=== PATIENT | female | born 1980 | race Caucasian/White ===

== ENCOUNTER 2018-06-10 03:59 | Emergency (ER) | payer OTHER ==
[2018-06-10 04:34] LABS: #Basophils 0.1 thou/uL (0.0-0.2); #Eosinphils 0.2 thou/uL (0.0-0.7); #Lymphocytes 2.3 thou/uL (1.20-3.40); #Neutrophils 11.3 thou/uL (1.40-6.50); %Basophils 0.6 % (0.0-1.0); %Eosinophils 1.4 % (0.0-10.0); %Lymphocytes 15.6 % (21.0-51.0); %Monocytes 6.8 % (0.0-10.0); %Neutrophils 75.7 % (42.0-75.0); Hemoglobin 9.4 g/dL (12.0-16.0); Mean Corpuscular HGB CONC 34.3 g/dL (32.0-36.0); Mean Corpuscular Hemoglobin 31.2 pg (27.0-31.0); Mean Corpuscular Volume 90.9 fL (78.0-98.0); Mean Platelet Volume 6.2 fL (7.4-10.4); Platelet Count 341 thou/uL (130-400); RBC Distribution Width 11.7 % (11.5-14.5); Red Blood Cell (RBC) Count 3.01 mill/uL (4.20-5.40)
[2018-06-10 04:54] LABS: ALT (SGPT) 11 U/L (8-55); AST (SGOT) 11 U/L (5-34); Albumin 3.5 g/dL (3.5-5.0); Alkaline Phosphatase 76 U/L (40-150); Anion Gap 14 mmol/L (10-20); BUN (Urea Nitrogen) 8 mg/dL (7.0-18.7); Bilirubin, Total Less than 0.2 mg/dL (0.2-1.2); CK (CPK) 168 U/L (29-168); Calc. Creatinine Clearance 0 mL/min (70-130); Calcium 9.1 mg/dL (7.8-10.44); Carbon Dioxide 23 mmol/L (22-29); Chloride 103 mmol/L (98-107); Estimated GFR-MDRD Greater than 90; Globulin 3.1 g/dL (2.4-3.5); Glucose 108 mg/dL (70-105); Potassium 3.5 mmol/L (3.5-5.1); Protein, Total 6.6 g/dL (6.0-8.3); Sodium 136 mmol/L (136-145)
[2018-06-10] MEDS ORDERED: Acetaminophen/Codeine 30-300mg Tablet ONE (05:28)
== END 2018-06-10 06:26 | disposition home or self-care (01) ==
LOC: ERS 03:59
DX: O09.522 Supervision of elderly multigravida, second trimester (principal); O99.89 Other specified diseases and conditions complicating pregnancy, childbirth and the puerperium; R07.9 Chest pain, unspecified; Z87.891 Personal history of nicotine dependence; Z3A.25 25 weeks gestation of pregnancy
CPT/HCPCS: 36415; 80053; 82550; 84484; 85025; 93005

== ENCOUNTER 2018-07-19 18:04 | Observation (INO) | payer OTHER ==
[2018-07-19 19:17] VITALS: BMI 43.8
[2018-07-19 19:47] LABS: Bilirubin Negative (Negative); Blood, Urine Negative (Negative); Clarity CLEAR (Clear); Glucose, Urine (Dipstick) Negative (Negative); Leukocyte Negative (Negative); Nitrite Negative (Negative); Protein, Urine (Dipstick) Negative (Neg-Trace); Specific Gravity, Urine 1.004 (1.002-1.036); Urobilinogen 0.2 mg/dL (0.2-1.0); pH, Urine 6.5 (5.0-9.0)
[2018-07-19 20:03] LABS: FFN Internal QC Analyzer PASS (PASS); FFN Internal QC Cassette PASS (PASS); Fetal Fibronectin Negative (Negative)
[2018-07-19] MEDS ORDERED: Butorphanol Tartrate 1 MG/ML VIAL SLOW IVP PRN (20:14)
[2018-07-19] MEDS ORDERED: Lactated Ringer's 1,000 ML IV SCH ×2 (20:15→21:30)
[2018-07-19] MEDS ORDERED: Ondansetron PF 4 MG/2 ML Vial IVP PRN (21:30)
[2018-07-19] MEDS ORDERED: Zolpidem Tartrate 5 MG TAB PO PRN (21:30)
[2018-07-19] MEDS ORDERED: Promethazine HCl 25 MG/ML VIAL IM PRN (21:30)
--- NOTE | 2018-07-19 22:39 | PDOC.EVN ---
Event Note - Event Note Event Note: Received call from L&D RN that pt. has signed out AMA apparently saying she was driving herself to [place] to be seen there. Dr. Hill was notified.
--- NOTE | 2018-07-20 01:53 | HP ---
REGULAR PHYSICIAN: Harley Hill DO, MS EVALUATING PHYSICIAN: Ankit Bergeron MD CHIEF COMPLAINT: Abdominal cramping. HISTORY OF PRESENT ILLNESS: Ms. Turcios is a 37-year-old white G2, P0, with an estimated date of confinement of 09/24/2018, who presents after complaining of abdominal cramping at her Maternal Medicine visit this afternoon. Her care has been with Dr. Julian. She has been complicated by anti C antibody status during her . The patient also has a pacemaker and at this point, her disposition is to deliver at [facility] in [place]. PAST OBSTETRICAL HISTORY: Includes one early miscarriage requiring D and C. PAST MEDICAL HISTORY: History includes sick sinus syndrome for which she has had both tachycardia and bradycardia. She has a pacemaker in place. She reports having had ablated procedures in the past. PAST SURGICAL HISTORY: Pacemaker placement, cardiac ablation, and sinus node surgery to her heart. CURRENT MEDICATIONS: vitamins and Macrobid. ALLERGIES: PENICILLIN, AMOXICILLIN, BACTRIM, SEPTRA, SULFA, AND CECLOR. SOCIAL HISTORY: Positive for half a package of cigarettes per day. She denies illicit drug use or alcohol. PHYSICAL EXAMINATION: VITAL SIGNS: Vital signs are stable. She is afebrile. GENERAL: She is in no distress, but does report significant abdominal cramping. ABDOMEN: Soft, nontender, and obese. Occasional contractions are palpated. fibronectin is obtained and vaginal exam demonstrates her cervix to be closed and high. LABORATORY DATA: fibronectin returns negative. Her urinalysis is clear with a specific gravity of 1.004 with negative protein, negative glucose, negative ketones, negative blood, negative nitrites, and negative bilirubin. There is also negative leukocyte esterase. heart rate tracing. heart rate tracing is stable with spontaneous accelerations. There are no decelerations. Contractions are seen every 1 to 4 minutes. The patient is given 1 L LR bolus and is also given stadol. The patient has refused a full mg of stadol. Despite these treatments, she continues to have intermittent contractions. ASSESSMENT: 1. 30 and 3/7th week intrauterine . 2. contractions with closed cervix and negative fibronectin. 3. Significant cardiac history with pacemaker in place. PLAN: I spoke with Dr. Hill regarding these findings and the plan at this time will be to observe her overnight. Should she proceed in the labor, the disposition at this time is to transfer her to [place] for delivery. Job ID: [id number]
== END 2018-07-19 21:50 | disposition left against medical advice (07) ==
LOC: L&D/OP 18:04 → L&D 21:30 → L&D/OP 21:50
PROVIDERS: ADMIT Obstetrics & Gynecology; ATTEND Obstetrics & Gynecology
DX: O99.89 Other specified diseases and conditions complicating pregnancy, childbirth and the puerperium (principal); R10.9 Unspecified abdominal pain; F17.210 Nicotine dependence, cigarettes, uncomplicated; Z3A.30 30 weeks gestation of pregnancy; Z79.899 Other long term (current) drug therapy; Z88.0 Allergy status to penicillin; Z88.1 Allergy status to other antibiotic agents; Z95.5 Presence of coronary angioplasty implant and graft
CPT/HCPCS: 81003; 82731; 96360; 96372; 99285; G0378; J0595

== ENCOUNTER 2018-08-02 10:40 | Day surgery (SDC) | payer OTHER ==
[2018-08-02 11:02] VITALS: BMI 42.3
--- NOTE | 2018-08-02 11:40 | PDOC.EVN ---
Event Note - Event Note Event Note: OBGYN Faculty See Dictated H&P Patient seen at bedside
[2018-08-02 11:54] LABS: #Eosinphils 0.2 thou/uL (0.0-0.7); #Lymphocytes 2.1 thou/uL (1.20-3.40); #Monocytes 0.7 thou/uL (0.11-0.59); #Neutrophils 10.4 thou/uL (1.40-6.50); %Basophils 0.3 % (0.0-1.0); %Eosinophils 1.1 % (0.0-10.0); %Lymphocytes 15.8 % (21.0-51.0); %Monocytes 5.3 % (0.0-10.0); %Neutrophils 77.5 % (42.0-75.0); Hemoglobin 11.4 g/dL (12.0-16.0); Mean Corpuscular HGB CONC 34.6 g/dL (32.0-36.0); Mean Corpuscular Hemoglobin 30.4 pg (27.0-31.0); Mean Corpuscular Volume 87.9 fL (78.0-98.0); Mean Platelet Volume 5.9 fL (7.4-10.4); Platelet Count 422 thou/uL (130-400); RBC Distribution Width 12.4 % (11.5-14.5); Red Blood Cell (RBC) Count 3.75 mill/uL (4.20-5.40); White Blood Cell (WBC) Count 13.4 thou/uL (4.8-10.8)
[2018-08-02 11:58] LABS: Clarity Clear (Clear); Leukocyte Negative (Negative); Nitrite Negative (Negative)
[2018-08-02 11:59] LABS: Protein, Urine (Dipstick) Trace mg/dL (Neg-Trace)
[2018-08-02 12:00] LABS: Glucose, Urine (Dipstick) Negative (Negative)
[2018-08-02 12:02] LABS: Bilirubin Negative (Negative); Blood, Urine Negative (Negative); Urobilinogen 0.2 mg/dL (0.2-1.0)
[2018-08-02 12:03] LABS: Urine Culture Reflex No No
--- NOTE | 2018-08-02 12:05 | HP ---
TIME OF EVALUATION: 11:10 to about 11:25. LOCATION: Labor and Delivery Triage in bed A. CHIEF COMPLAINT: Recurrent bladder symptom/cardiac history. This is a patient of Dr. Hill, but the patient is currently being cared for by the [facility] team in [place] at [facility]. HISTORY OF PRESENT ILLNESS: This is a 38-year-old female, 2, para 0, who is currently at 32 weeks and 3 days with a prior complicated history of cardiac abnormality. She has a history of persistent arrhythmia requiring prior SA node ablation and is currently wearing a pacemaker. She is followed by Cardiology for this. She is currently evaluated and cared for by the [facility] team, at the direction of Dr. Hill, who is following her because of her cardiac history as well as having positive serum antibody titers. She receives regularly scheduled middle cerebral artery assessments to rule out any early hydrops fetalis. She is doing well from that standpoint. She arrives now stating "she does not feel well" and is having recurrent bladder symptoms. According to our nursing report and the patient's history, there is no evidence of dyspnea or shortness of breath. No chest pain history was reported to the nurse and was not vocalized to myself either. REVIEW OF SYSTEMS: Review of systems was covered and is otherwise negative unless specified in the HPI. PAST MEDICAL HISTORY: Significant for a cardiac history as currently discussed and she also has a history of infantile urethral stricture. PAST SURGICAL HISTORY: Includes, 1. Pacemaker insertion. 2. D and C in 2018 for a miscarriage. 3. Urethral dilation as a child. PAST MEDICAL HISTORY: The patient takes Zofran and Nexium daily. ALLERGIES: MULTIPLE MEDICATIONS INCLUDING AMOXICILLIN, CEFACLOR, PENICILLIN SOCIAL HISTORY: Noncontributory. PHYSICAL EXAMINATION: VITAL SIGNS: Her temperature is 98.6, blood pressure is 115/62, and her initial pulse on admission was 122, but after initial evaluation, pulse was down to 105 to 107. GENERAL: Clinically, se is in no acute distress, but looks uncomfortable. She is able to provide history and no respiratory restriction. ABDOMEN: Soft and NT PELVIC: Currently deferred as there is no evidence of labor or no history of leakage of fluid or vaginal bleeding. Monitors; I reviewed the strip and heart rate is 130s to 140s and it is reactive. There are accelerations present. Tocodynamometer reveals absence of contractions. ASSESSMENT and PLAN: This is a multigravida, G2, P0, at 32 weeks and 3 days with a prior history of cardiac abnormality and recurrent urinary tract infection. 1. AMA status: Nothing to address here. 2. Cardiac history: The patient has Cardiology followup as well as MFM followup. Will order EKG. HX pacemaker use 3. Recurrent urinary tract infection: I have reviewed the patient's last urine culture, which was positive for Enterococcus. It was sensitive to Macrobid. Even though the patient has used Macrobid in the past, this last urine culture, which is recent, shows it is still sensitive. We will likely re-administer Macrobid, but at this time for a 10-day duration. Dose will be 100 mg p.o. b.i.d. I have ordered a cath urine with a reflex to culture for our own record. 4. Overall health status: I have ordered a CBC and a CMP to rule out any other underlying subacute abnormalities. We will await those labs. In brief, this is a patient with a complicated cardiac history and recurrent UTI events, but does not appear to have clinical evidence of labor or pyelonephritis. We will await labs as dictated and likely do outpatient care and follow her up with [facility] as scheduled. Job ID: [id number] [facility]
[2018-08-02 12:16] LABS: ALT (SGPT) 7 U/L (8-55); AST (SGOT) 8 U/L (5-34); Albumin 3.5 g/dL (3.5-5.0); Alkaline Phosphatase 110 U/L (40-150); Anion Gap 14 mmol/L (10-20); BUN (Urea Nitrogen) 9 mg/dL (7.0-18.7); Bilirubin, Total 0.2 mg/dL (0.2-1.2); Calc. Creatinine Clearance 196 mL/min (70-130); Calcium 9.8 mg/dL (7.8-10.44); Carbon Dioxide 22 mmol/L (22-29); Chloride 102 mmol/L (98-107); Estimated GFR-MDRD Greater than 90; Globulin 3.5 g/dL (2.4-3.5); Glucose 100 mg/dL (70-105); Potassium 4.1 mmol/L (3.5-5.1); Sodium 134 mmol/L (136-145)
--- NOTE | 2018-08-02 13:34 | PDOC.EVN ---
Event Note - Event Note Event Note: Follow Up: CMP and CBC are back with no specific abnormality Slight shift in WBCs (77% PMNs)..but no fever...may be due to EGA Cath UA looks clear..we will concert to C&S just to make sure and I instructed her to have her MD follow up the culture result. EKG was normal sinus at 98 BPM No evidence PTL or acute distress Keep with Keflex for UTI suppression Likely diagnosis at this point: discomforts of I have reviewed this with the patient and partner Told to keep M follow up for the antibdoy issues and cardiology HX Labs given to the patient
== END 2018-08-02 13:33 | disposition home health service (06) ==
LOC: L&D/OP 10:40
PROVIDERS: ATTEND Obstetrics & Gynecology
DX: O23.43 Unspecified infection of urinary tract in pregnancy, third trimester (principal); B95.2 Enterococcus as the cause of diseases classified elsewhere; Z86.79 Personal history of other diseases of the circulatory system; Z95.0 Presence of cardiac pacemaker; Z3A.32 32 weeks gestation of pregnancy; Z88.0 Allergy status to penicillin; Z88.2 Allergy status to sulfonamides; Z88.1 Allergy status to other antibiotic agents; Z79.899 Other long term (current) drug therapy
CPT/HCPCS: 36415; 51701; 80053; 81001; 85025; 87086; 93005; 93010; 99282

== ENCOUNTER 2018-08-25 20:40 | Emergency (ER) | payer OTHER ==
[2018-08-25 21:20] LABS: #Eosinphils 0.1 thou/uL (0.0-0.7); #Lymphocytes 2.4 thou/uL (1.20-3.40); #Monocytes 0.7 thou/uL (0.11-0.59); #Neutrophils 8.2 thou/uL (1.40-6.50); %Basophils 0.3 % (0.0-1.0); %Eosinophils 1.2 % (0.0-10.0); %Lymphocytes 20.7 % (21.0-51.0); %Neutrophils 71.8 % (42.0-75.0); Hemoglobin 11.5 g/dL (12.0-16.0); Mean Corpuscular HGB CONC 34.1 g/dL (32.0-36.0); Mean Corpuscular Hemoglobin 29.7 pg (27.0-31.0); Mean Corpuscular Volume 87.1 fL (78.0-98.0); Mean Platelet Volume 6.2 fL (7.4-10.4); Platelet Count 378 thou/uL (130-400); Red Blood Cell (RBC) Count 3.88 mill/uL (4.20-5.40); White Blood Cell (WBC) Count 11.5 thou/uL (4.8-10.8)
[2018-08-25 21:41] LABS: ALT (SGPT) 7 U/L (8-55); AST (SGOT) 7 U/L (5-34); Albumin 3.3 g/dL (3.5-5.0); Alkaline Phosphatase 142 U/L (40-150); Anion Gap 12 mmol/L (10-20); BUN (Urea Nitrogen) 11 mg/dL (7.0-18.7); Bilirubin, Total 0.2 mg/dL (0.2-1.2); CK (CPK) 32 U/L (29-168); Calc. Creatinine Clearance 0 mL/min (70-130); Calcium 9.1 mg/dL (7.8-10.44); Carbon Dioxide 21 mmol/L (22-29); Chloride 105 mmol/L (98-107); Estimated GFR-MDRD Greater than 90; Globulin 3.4 g/dL (2.4-3.5); Glucose 102 mg/dL (70-105); Lipase 19 U/L (8-78); Potassium 4.1 mmol/L (3.5-5.1); Protein, Total 6.7 g/dL (6.0-8.3); Sodium 134 mmol/L (136-145)
[2018-08-25 23:16] LABS: Bilirubin Negative (Negative); Blood, Urine Negative (Negative); Clarity CLEAR (Clear); Glucose, Urine (Dipstick) Negative (Negative); Leukocyte Negative (Negative); Nitrite Negative (Negative); Protein, Urine (Dipstick) Negative (Neg-Trace); Specific Gravity, Urine 1.025 (1.002-1.036); Urobilinogen 0.2 mg/dL (0.2-1.0)
== END 2018-08-25 23:21 | disposition left against medical advice (07) ==
LOC: ERS 20:40
DX: O09.523 Supervision of elderly multigravida, third trimester (principal); O99.89 Other specified diseases and conditions complicating pregnancy, childbirth and the puerperium; R07.9 Chest pain, unspecified; Z87.891 Personal history of nicotine dependence; Z3A.36 36 weeks gestation of pregnancy
CPT/HCPCS: 36415; 82550; 83690; 87086; 93005

== ENCOUNTER 2018-08-27 15:12 | Emergency (ER) | payer OTHER ==
[~2018-08-27 15:12] MED LIST: ISOVUE-370 76%-LOCM 1 ML ONE
[2018-08-27 15:48] LABS: #Eosinphils 0.1 thou/uL (0.0-0.7); #Lymphocytes 2.2 thou/uL (1.20-3.40); #Monocytes 0.7 thou/uL (0.11-0.59); #Neutrophils 8.9 thou/uL (1.40-6.50); %Basophils 0.4 % (0.0-1.0); %Eosinophils 1.2 % (0.0-10.0); %Lymphocytes 18.1 % (21.0-51.0); %Monocytes 5.7 % (0.0-10.0); %Neutrophils 74.7 % (42.0-75.0); Hemoglobin 11.5 g/dL (12.0-16.0); Mean Corpuscular HGB CONC 35.1 g/dL (32.0-36.0); Mean Corpuscular Hemoglobin 30.5 pg (27.0-31.0); Mean Corpuscular Volume 87.1 fL (78.0-98.0); Mean Platelet Volume 6.3 fL (7.4-10.4); Platelet Count 403 thou/uL (130-400); RBC Distribution Width 13.1 % (11.5-14.5); Red Blood Cell (RBC) Count 3.76 mill/uL (4.20-5.40); White Blood Cell (WBC) Count 11.9 thou/uL (4.8-10.8)
[2018-08-27 16:07] LABS: ALT (SGPT) 7 U/L (8-55); AST (SGOT) 14 U/L (5-34); Albumin 3.3 g/dL (3.5-5.0); Alkaline Phosphatase 144 U/L (40-150); Anion Gap 15 mmol/L (10-20); BUN (Urea Nitrogen) 8 mg/dL (7.0-18.7); Bilirubin, Total 0.2 mg/dL (0.2-1.2); Calc. Creatinine Clearance 0 mL/min (70-130); Calcium 9.3 mg/dL (7.8-10.44); Carbon Dioxide 20 mmol/L (22-29); Chloride 105 mmol/L (98-107); Estimated GFR-MDRD Greater than 90; Globulin 3.7 g/dL (2.4-3.5); Glucose 111 mg/dL (70-105); Potassium 4.4 mmol/L (3.5-5.1); Sodium 136 mmol/L (136-145)
--- NOTE | 2018-08-27 17:05 | ULT ---
Venous duplex sonogram bilateral lower extremity HISTORY: Chest pain. Elevated d-dimer findings: Each common femoral vein and greater saphenous juncti on were evaluated along with the femoral, deep femoral, popliteal, and posterior tibial vein. There is good color and spectral Doppler flow, compression, and augmentation. IMPRESSION: No sonographic evidence of DVT within either lower extremity.
--- NOTE | 2018-08-27 17:47 | CT ---
CT arteriogram chest with IV contrast and 3-D MIPS imaging HISTORY: Chest pain. Dyspnea. FINDINGS: There is good contrast opacification of the pulmonary arteries and thoracic aorta with norm al branching of the great vessels at the aortic arch. Cardiac pacer partially visualized. Calcified mediastinal lymph nodes and parenchymal granulomata. No pneumothorax or mediastinal adenopathy. IMPRESSION: No CT evidence of pulmonary embolus.
--- NOTE | 2018-08-27 18:44 | PRG ---
DATE OF SERVICE: 08/27/2018 The patient is a 38-year-old female, who presented to the emergency room downstairs for chest pain. The patient has past medical history significant for sick sinus syndrome, status post ablation and now has a pacemaker. She is being followed for intrauterine at 36 weeks by an [facility] physician in [place]. Plan at this time is for the patient to be transferred out to the [facility] in [place] for management by her primary OB. We were consulted just for evaluation of the tracing. In reviewing the tracing, baseline appears to be in the 130s with moderate long-term variability, positive 15 x 15 accelerations, no decelerations. In briefly talking to the patient, the patient has no obstetric complaints. She does report some chest pain and some shortness of breath and just does not feel well. She was here last week for syncopal episode. The patient is undergoing evaluation by the ER physician and is being evaluated for pulmonary embolism prior to transfer to [place]. Again, fetus has a reactive NST and category 1 tracing. Job ID: [id number]
== END 2018-08-27 21:17 | disposition designated cancer center or children's hospital (05) ==
LOC: ERS 15:12
DX: O99.89 Other specified diseases and conditions complicating pregnancy, childbirth and the puerperium (principal); R07.9 Chest pain, unspecified; R06.00 Dyspnea, unspecified; O99.413 Diseases of the circulatory system complicating pregnancy, third trimester; I49.9 Cardiac arrhythmia, unspecified; O99.333 Smoking (tobacco) complicating pregnancy, third trimester; F17.210 Nicotine dependence, cigarettes, uncomplicated; O99.343 Other mental disorders complicating pregnancy, third trimester; F41.9 Anxiety disorder, unspecified; Z3A.36 36 weeks gestation of pregnancy
CPT/HCPCS: 71275; 80053; 84484; 85025; 93005; 93970; Q9966

== ENCOUNTER 2019-05-08 14:06 | Emergency (ER) | payer OTHER ==
[2019-05-08 14:44] LABS: #Basophils 0.1 thou/uL (0.0-0.2); #Eosinphils 0.3 thou/uL (0.0-0.7); #Lymphocytes 2.8 thou/uL (1.20-3.40); #Monocytes 0.8 thou/uL (0.11-0.59); #Neutrophils 7.9 thou/uL (1.40-6.50); %Basophils 0.5 % (0.0-1.0); %Eosinophils 2.1 % (0.0-10.0); %Lymphocytes 23.9 % (21.0-51.0); %Monocytes 6.9 % (0.0-10.0); %Neutrophils 66.6 % (42.0-75.0); Hemoglobin 13.7 g/dL (12.0-16.0); Mean Corpuscular HGB CONC 34.5 g/dL (32.0-36.0); Mean Corpuscular Hemoglobin 30.5 pg (27.0-31.0); Mean Corpuscular Volume 88.4 fL (78.0-98.0); Mean Platelet Volume 6.7 fL (7.4-10.4); Platelet Count 334 thou/uL (130-400); RBC Distribution Width 14.5 % (11.5-14.5); Red Blood Cell (RBC) Count 4.49 mill/uL (4.20-5.40); White Blood Cell (WBC) Count 11.9 thou/uL (4.8-10.8)
--- NOTE | 2019-05-08 15:04 | RAD ---
CHEST 1 VIEW PORTABLE: Date: 05/08/2019 HISTORY: Chest pain, pressure, pain in throat and back. COMPARISON: 12/23/2018. FINDINGS: Left ICD. Left-sided loop recorder. Heart size is normal. The lungs are clear. No significant acute intrathoracic disease. Stable old granulomatous disease. IMPRESSION: Stable chest. No acute process. POS: TPC
[2019-05-08 15:08] LABS: ALT (SGPT) 16 U/L (8-55); AST (SGOT) 15 U/L (5-34); Albumin 4.5 g/dL (3.5-5.0); Alkaline Phosphatase 88 U/L (40-110); Anion Gap 13 mmol/L (10-20); BUN (Urea Nitrogen) 14 mg/dL (7.0-18.7); Bilirubin, Total 0.2 mg/dL (0.2-1.2); Calc. Creatinine Clearance 0 mL/min (70-130); Calcium 9.2 mg/dL (7.8-10.44); Carbon Dioxide 27 mmol/L (22-29); Chloride 102 mmol/L (98-107); Estimated GFR-MDRD 82; Globulin 2.9 g/dL (2.4-3.5); Glucose 100 mg/dL (70-105); Potassium 4.1 mmol/L (3.5-5.1); Protein, Total 7.4 g/dL (6.0-8.3); Sodium 138 mmol/L (136-145)
--- NOTE | 2019-05-11 14:49 | EKG ---
Test Reason : Blood Pressure : / mmHG Vent. Rate : 090 BPM Atrial Rate : 090 BPM P-R Int : 104 ms QRS Dur : 086 ms QT Int : 386 ms P-R-T Axes : 078 009 039 degrees QTc Int : 472 ms Sinus rhythm with short NE Nonspecific ST abnormality Abnormal ECG Confirmed by ASH JAMISON ([id number]), manager editorial LAUREANO BOSS ([id number]) on 05/11/2019 2:49:11 PM Referred By: Confirmed By:ASH JAMISON
== END 2019-05-08 15:48 | disposition home or self-care (01) ==
LOC: ERS 14:06
DX: R07.9 Chest pain, unspecified (principal); R00.2 Palpitations; I49.9 Cardiac arrhythmia, unspecified; F41.9 Anxiety disorder, unspecified; F17.210 Nicotine dependence, cigarettes, uncomplicated; Z79.899 Other long term (current) drug therapy
CPT/HCPCS: 36415; 71045; 80053; 84484; 85025; 93005

== ENCOUNTER 2020-01-01 13:47 | Outpatient (CLI) | payer OTHER ==
[~2020-01-01 13:47] MED LIST changes: -ISOVUE-370 76%-LOCM 1 ML ONE; +Iopamidol 370 76% 100 ML VIAL ONE
--- NOTE | 2020-01-01 15:12 | CT ---
CT ABDOMEN AND PELVIS WITH AND WITHOUT IV CONTRAST 01/01/2020 CLINICAL INFORMATION: Adrenal nodule, hepatomegaly COMPARISON: CTA chest on 10/23/2019 and 09/16/2019 Technique: Multiple contiguous axial CT images are obtained through the abdomen and pelvis with IV contrast. Cor onal reformatted images are provided. FINDINGS: Lower Chest: Calcified granuloma right lung base. Lung bases are otherwise clear. Partial visualizati on of a cardiac pacemaking lead. Vessels: Minimal vascular calcifications in the infrarenal abdominal aorta which is normal in caliber Abdomen: Portal vein:Patent Gallbladder: Within normal limits for CT imaging. Liver: Liver is normal in size in craniocaudal dimensions. Liver has a normal CT appearance but Spleen: Few punctate calcified granulomata are present. Pancreas: within normal limits. Adrenals: Normal in appearance bilaterally. The left adrenal gland demonstrated a slight nodular cont our on the CTA on 09/16/2019, but this was not appreciated on CTA chest on 10/23/2019. No left adrenal nodule is seen on today's exam. Kidneys: Right kidney is rotated. There is a lobulated appearance of each kidney which may related to lobulation. No renal calculi are seen, and there is no enhancing renal mass or evidence of hydronephrosis Bowel: Normal in caliber where visualized. Peritoneum/retroperitoneum: No free fluid, fluid collection, or lymphadenopathy is seen. There is a o miguel-shaped area of soft tissue density seen in the left para-aortic leg patient just medial to the left adrenal gland which may represent a nonenlarged lymph node. This finding is stable when compared to a CTA chest on 12/22/2015. Abdominal Wall: within normal limits. Bones: No suspicious lytic or sclerotic osseous lesions. IMPRESSION: 1. No acute findings in the abdomen. 2. The adrenal glands demonstrate a normal CT appearance bilaterally without evidence of an adrenal n odule. There was mild nodular prominence of the left adrenal gland on study on 09/16/2019, but this is not appreciated on today's examination.
== END 2020-01-01 13:48 | disposition home or self-care (01) ==
LOC: BICCT 13:47
PROVIDERS: ATTEND Family Medicine
DX: E27.8 Other specified disorders of adrenal gland (principal); R16.0 Hepatomegaly, not elsewhere classified
CPT/HCPCS: 74170; Q9967

== ENCOUNTER 2023-01-30 09:14 | Day surgery (SDC) | payer OTHER ==
[2023-01-25 10:36] VITALS: BMI 37.0
[2023-01-25 11:04] LABS: Hematocrit 44.6 % (34.9-44.5); Hemoglobin 15.6 g/dL (12.0-15.5); Mean Corpuscular Hemoglobin 31.9 pg (27.0-33.0); Mean Corpuscular Volume 91.2 fl (81.6-98.3); Mean Platelet Volume 8.9 fl (7.4-10.4); Platelet Count 314 10x3/uL (150-450); RBC Distribution Width 14.1 % (11.5-14.5); Red Blood Cell (RBC) Count 4.89 10x6/uL (3.90-5.03); White Blood Cell (WBC) Count 9.6 10x3/uL (3.5-10.5)
[2023-01-25 11:25] LABS: Anion Gap 16 mmol/L (10-20); BUN (Urea Nitrogen) 15 mg/dL (7.0-18.7); Calc. Creatinine Clearance 133 mL/min (70-130); Calcium 9.3 mg/dL (7.8-10.44); Carbon Dioxide 22 mmol/L (22-29); Chloride 103 mmol/L (98-107); Estimated GFR 101; Glucose 101 mg/dL (70-105); PTT 31.2 sec (22.0-33.0); Potassium 4.1 mmol/L (3.5-5.1); Prothrombin Time 10.5 sec (9.5-12.1); Sodium 137 mmol/L (136-145)
[2023-01-30] MEDS ORDERED: Gentamicin 80 MG/2 ML VIAL ONE (10:24)
[2023-01-30] MEDS ORDERED: Lidocaine 1% (PF) 30 ML VIAL ONE (10:24)
[2023-01-30] MEDS ORDERED: LevoFLOXacin 500 mg/D5W 100 ML BAG ONE (10:34)
[2023-01-30] MEDS ORDERED: Midazolam HCl 2 mg/2 ml Vial ONE ×3 (12:36→13:24)
[2023-01-30] MEDS ORDERED: Scopolamine 1 mg/72 hour Patch ONE (12:36)
[2023-01-30] MEDS ORDERED: fentaNYL PF 100 MCG/2 ML SYRINGE ONE (12:41)
[2023-01-30] MEDS ORDERED: Propofol 500 MG/50 ML VIAL ONE (12:41)
[2023-01-30] MEDS ORDERED: Clindamycin/D5W 900 mg/50 ml Premix Bag ONE (12:45)
[2023-01-30] MEDS ORDERED: fentaNYL 50 mcg/mL 1 mL Vial ONE (13:18)
[2023-01-30] MEDS ORDERED: Ondansetron PF 4 MG/2 ML Vial ONE ×2 (13:56→15:27)
[2023-01-30] MEDS ORDERED: HYDROcodone/Acetaminophen 5/325 mg Tablet ONE (15:24)
== END 2023-01-30 15:53 | disposition home or self-care (01) ==
LOC: SDC 09:14
PROVIDERS: ATTEND Internal Medicine Cardiovascular Disease
PROC: 0JH604Z Insertion of Pacemaker, Single Chamber into Chest Subcutaneous Tissue and Fascia, Open Approach (ICD-10-PCS; principal; 2023-01-30)
PROC: 0JPT0PZ Removal of Cardiac Rhythm Related Device from Trunk Subcutaneous Tissue and Fascia, Open Approach (ICD-10-PCS; principal; 2023-01-30)
DX: Z45.02 Encounter for adjustment and management of automatic implantable cardiac defibrillator (principal); I49.5 Sick sinus syndrome; I47.11 Inappropriate sinus tachycardia, so stated
CPT/HCPCS: 33227; 80048; 85027; 85610; 85730; 99152; 99153; C1786; J1580; J1956; J2001; J2250; J2405; J2704; J3010; J3490

== ENCOUNTER 2023-04-12 09:17 | Outpatient (CLI) | payer OTHER ==
[2023-04-12] MEDS ORDERED: Iopamidol-370 76% 500 ML MDV (1 ML CHARGE) ONE (11:12)
== END 2023-04-12 09:18 | disposition home or self-care (01) ==
LOC: BICCT 09:17
PROVIDERS: ATTEND Ophthalmology
DX: H05.111 Granuloma of right orbit (principal)
CPT/HCPCS: 70482